=== PATIENT | male | born 1975 | race African-American/Black ===

== ENCOUNTER 2017-12-13 12:20 | Emergency (ER) | payer BC ==
--- NOTE | 2017-12-13 15:28 | RAD ---
RIGHT ANKLE 2 VIEWS: Date: 12/13/17 HISTORY: Injury. Fall. COMPARISON: None. FINDINGS: No fracture. No malalignment. Mild bimalleolar edema. There is a small enthesophyte of the medial mal leolus. IMPRESSION: No displaced fracture or malalignment. POS: MYRNA
== END 2017-12-13 15:06 | disposition home or self-care (01) ==
LOC: ERS 12:20
DX: S93.401A Sprain of unspecified ligament of right ankle, initial encounter (principal); I10 Essential (primary) hypertension; F17.220 Nicotine dependence, chewing tobacco, uncomplicated; X50.1XXA Overexertion from prolonged static or awkward postures, initial encounter; Y93.52 Activity, horseback riding

== ENCOUNTER 2017-12-20 15:09 | Emergency (ER) | payer BC | END 2017-12-20 16:00 | disposition home or self-care (01) | LOC: ERS 15:09 | DX: S93.401A Sprain of unspecified ligament of right ankle, initial encounter (principal); I10 Essential (primary) hypertension; F17.220 Nicotine dependence, chewing tobacco, uncomplicated; X58.XXXA Exposure to other specified factors, initial encounter | CPT/HCPCS: 99283 ==